=== PATIENT | female | born 1985 | race African-American/Black ===

== ENCOUNTER 2016-07-01 09:05 | Emergency (ER) | payer SELFPAY ==
[~2016-07-01] VITALS: Ht 158.8 cm; Wt 74.8 kg
[~2016-07-01 09:05] MED LIST: ALBUTEROL SULF8.5 GM INH; AZITHROMYCIN250 MG ORAL; NKM; NORCO 5-325 TA1 EACH ORAL; PROMETHAZINE-D118 ML ORAL; ROBITUSSIN DM5 ML ORAL; ZITHROMAX250 MG ORAL
[2016-07-01 09:11] VITALS: BP 124/74
[2016-07-01] MEDS ORDERED: Ipratropium 0.02% Inh Soln 2.5ml UD ONE (09:33)
[2016-07-01] MEDS ORDERED: Albuterol ud Inhalation ONE (09:33)
--- NOTE | 2016-07-01 09:36 | Emergency Room Report ---
History of Present Illness General Chief Complaint: Upper Respiratory Illness Source: Patient, Medical Record Present Illness HPI Patient with URI sy. Has been wheezing. Had bronchitis last year and feels similar. No prednisone. + productive sputum. No chest pain. Inhaler has helped in the past. No NVD, rashes, headache, dysuria. States not . Allergies: Coded Allergies: No Known Allergies (Unverified , 06/06/12) Patient History Past Medical History: see triage record Social History: Reports: smoking Social History Narrative unemployed Last Menstrual Period: 06/16/16 Now: No : 0 Para: 0 Review of Systems All Other Systems: negative except mentioned in HPI Physical Exam Vital Signs Date Time Temp Pulse Resp B/P Pulse Ox O2 Delivery O2 Flow Rate FiO2 07/01/16 09:11 98.4 108 21 124/74 99 Room Air Sp02 EP Interpretation: reviewed, normal General Appearance: well appearing, no apparent distress Head: normocephalic, atraumatic ENT: hearing grossly normal, normal voice Neck: full range of motion, supple Respiratory: chest non-tender, wheezing, expiration Cardiovascular #1: regular rate, rhythm, no edema Gastrointestinal: normal bowel sounds, non tender, soft Musculoskeletal: digits/nails normal, gait/station normal, normal range of motion, no calf tenderness Neurologic: alert, normal gait, grossly normal Psychiatric: mood/affect normal Skin: no rash Medical Decision Making Diagnostic Impression: Primary Impression: Asthmatic bronchitis Qualified Codes: J45.21 - Mild intermittent asthma with (acute) exacerbation ER Course Patient with URI and wheezing. DDx: asthmatic bronchitis, pneumonia, bronchitis , viral syndrome. No resp distress. Will treat with breathing treatments and decadron. No blood work or xrays indicated at this time. Purulent sputum with asthma, antibiotics indicated. Improved with breathing treatments. Patient stable for outpatient observation and treatment. Last Vital Signs Date Time Temp Pulse Resp B/P Pulse Ox O2 Delivery O2 Flow Rate FiO2 07/01/16 11:05 98.4 108 18 124/74 100 Room Air Status: improved Disposition: HOME, SELF-CARE Condition: Improved Scripts Codeine/Promethazine Hcl* (PROMETHAZINE-CODEINE SYRUP*) 118 Ml Syrup 5 ML ORAL Q6H Y for For Cough, #60 ML 0 Refills Prov: Dieudonne Sahu M.D. 07/01/16 Albuterol Sulfate* (ALBUTEROL SULFATE MDI*) 8.5 Gm Hfa.aer.ad 2 PUFF INH Q6H, #1 EA 0 Refills Prov: Dieudonne Sahu M.D. 07/01/16 Azithromycin* (ZITHROMAX*) 250 Mg Tablet 250 MG ORAL DAILY, #4 TAB Prov: Dieudonne Sahu M.D. 07/01/16 Referrals: NOT CHOSEN DELONTE/,REFERRING (PCP) Dieudonne Sahu M.D. Jul 01, 2016 09:36
[2016-07-01] MEDS ORDERED: Azithromycin 250mg tab ORAL ONE (09:45)
[2016-07-01] MEDS ORDERED: Ipratropium 0.02% Inh Soln 2.5ml UD HHN ONE (09:45)
[2016-07-01] MEDS ORDERED: Albuterol ud Inhalation HHN ONE (09:45)
[2016-07-01] MEDS ORDERED: ZITHROMAX250 MG ORAL (10:57)
[2016-07-01] MEDS ORDERED: ALBUTEROL SULF8.5 GM INH (10:57)
[2016-07-01] MEDS ORDERED: PROMETHAZINE-C118 M1 ORAL (10:57)
[2016-07-01 11:05] VITALS: BP 124/74
== END 2016-07-01 11:05 | disposition home or self-care (01) ==
LOC: EMR 09:33
DX: J45.21 Mild intermittent asthma with (acute) exacerbation (principal); F17.200 Nicotine dependence, unspecified, uncomplicated
CPT/HCPCS: 94640; 94664; 99284; J8540

== ENCOUNTER 2016-10-09 14:38 | Emergency (ER) | payer SELFPAY ==
[~2016-10-09] VITALS: Ht 157.5 cm; Wt 83.9 kg
[~2016-10-09 14:38] MED LIST changes: +PROMETHAZINE-C118 M1 ORAL
[2016-10-09] MEDS ORDERED: Metoclopramide 10mg/2ml Inj IVP ONE (15:00)
[2016-10-09 15:23] LABS: APPEARANCE,URINE SLIGHTLY CLOUDY; KETONES,URINE NEGATIVE (NEGATIVE); LEUKOCYTE ESTERASE ,URINE 1+ (NEGATIVE); NITRITE,URINE NEGATIVE (NEGATIVE); PH,URINE 8 (4.5-8.0); PROTEIN,URINE NEGATIVE (NEGATIVE); UROBILINOGEN,URINE NORMAL MG/DL (0.0-1.0)
[2016-10-09 15:29] LABS: AMORPHOUS SEDIMENT,UR FEW /LPF; RBC,URINE 0-2 /HPF (0 - 2); SQUAMOUS EPITHELIAL CELL,UR MANY /LPF (NONE/OCC)
[2016-10-09 15:32] VITALS: BP 107/68
[2016-10-09 15:40] LABS: MEAN CORPUSCULAR HEMOGLOBIN 24.3 PG (27.0-31.0); MEAN CORPUSCULAR HGB CONC 30.6 G/DL (32.0-36.0); MEAN CORPUSCULAR VOLUME 79 FL (80-99); MEAN PLATELET VOLUME 7.8 FL (6.5-10.1); PLATELET COUNT 179 K/UL (150-450); RED BLOOD COUNT 4.77 M/UL (4.20-5.40); RED CELL DISTRIBUTION WIDTH 13.1 % (11.6-14.8); WHITE BLOOD COUNT 7.7 K/UL (4.8-10.8)
[2016-10-09 15:58] LABS: ALANINE AMINOTRANSFERASE 9 U/L (3-33); ALBUMIN/GLOBULIN RATIO 1.4 (1.0-2.7); ANION GAP 11 (5-15); ASPARTATE AMINO TRANSFERASE 12 U/L (5-40); CALCIUM 9.4 mg/dL (8.6-10.2); CARBON DIOXIDE 25 mEQ/L (20-30); CHLORIDE 100 mEQ/L (98-107); CREATININE 0.7 mg/dL (0.5-0.9); GLOMERULAR FILTRATION RATE > 60 mL/min (>60); HEMOLYSIS 4; LIPASE 13 U/L (< 60); POTASSIUM 4.3 mEQ/L (3.4-4.9); SODIUM 136 mEQ/L (135-145)
--- NOTE | 2016-10-09 15:59 | Emergency Room Report ---
History of Present Illness General Chief Complaint: Vomiting Source: Patient Present Illness HPI 31 YO Female presents to ED c/o acute onset this am of nausea and vomiting. pt. reports vomiting 5 times, denies blood in vomit. pt. denies abdominal pain other than burning epigastric discomfort 5/10 in severity after episodes of vomiting. pt. denies abdominal tenderness, fevers, chills, constipation or diarrhea. pt. denies ill contacts or recent travel. pt. reports she has not had a period since apr. pt. reports mild dizziness after vomiting. denies vertigo, denies recent head trauma. denies marijuana use. Denies low back pain, hematuria , dysuria, or frequency. Denies CP, Palpitations, LOC, AMS, dizziness, Changes in Vision, Sensation, paresthesias, or a sudden severe headache. Allergies: Coded Allergies: No Known Allergies (Unverified , 06/06/12) Patient History Past Medical History: see triage record Past Surgical History: none Pertinent Family History: none Last Menstrual Period: Apr, 2016 Now: No Reviewed Nursing Documentation: PMH: Agreed, PSxH: Agreed Nursing Documentation-PMH Past Medical History: No History, Except For Review of Systems All Other Systems: negative except mentioned in HPI Physical Exam Vital Signs Date Time Temp Pulse Resp B/P Pulse Ox O2 Delivery O2 Flow Rate FiO2 10/09/16 14:43 98.1 108 16 107/68 98 Room Air Sp02 EP Interpretation: reviewed, abnormal - tachycardic at 108 bpm and systolic bp is on the lower end. General Appearance: no apparent distress, alert, GCS 15, non-toxic Head: normocephalic, atraumatic Eyes: bilateral eye PERRL, bilateral eye normal inspection ENT: hearing grossly normal, normal pharynx, no angioedema, normal voice Neck: full range of motion, supple/symm/no masses Respiratory: lungs clear, normal breath sounds, speaking full sentences Cardiovascular #1: regular rate, rhythm, no edema Gastrointestinal: normal bowel sounds, non tender, soft, no guarding, no rebound, other - Negative Magnolia signs, Negative MacBurney's sign, No Peritoneal signs. Rectal: deferred Genitourinary: normal inspection, no CVA tenderness Musculoskeletal: back normal, gait/station normal, normal range of motion, non- tender Neurologic: alert, oriented x3, responsive, motor strength/tone normal, sensory intact, speech normal Psychiatric: judgement/insight normal, memory normal, mood/affect normal Skin: normal color, no rash, warm/dry, well hydrated Medical Decision Making PA Attestation Dr. Sahu is my supervising Physician whom patient management has been discussed with. Diagnostic Impression: Primary Impression: Gastritis Qualified Codes: K29.00 - Acute gastritis without bleeding ER Course 31 YO Female presents to ED c/o acute onset this am of nausea and vomiting. pt. reports vomiting 5 times, denies blood in vomit. pt. denies abdominal pain other than burning epigastric discomfort 5/10 in severity after episodes of vomiting. pt. denies abdominal tenderness, fevers, chills, constipation or diarrhea. pt. denies ill contacts or recent travel. pt. reports she has not had a period since apr. pt. reports mild dizziness after vomiting. denies vertigo, denies recent head trauma. denies marijuana use. Denies CP, Palpitations, LOC, AMS, dizziness, Changes in Vision, Sensation, paresthesias, or a sudden severe headache. Ddx considered but are not limited to Diverticulitis, acute appendicitis, diarrhea, UC, PUD, GE, pancreatitis, gallstone, Vital signs: Tachycardic at 108 bpm and systolic bp is on the lower end., pt. is afebrile H&PE are most consistent with gastritis.- will treat prophylactically for volume loss due to tachycardia, and low systolic BP ORDERS: CBC- Unremarkable CMP: electrolytes normal, unremarkable lipase: WNL UA: WNL Urine hcg: negative ED INTERVENTIONS: -- 1000NS - zantac 150mg - Reglan 10mg . Pt. able to tolerate oral fluids. pt. states she feels much better, and is not as nauseated. I do not suspect an emergent condition at this time. with current presentation, and laboratory results, pt. is stable for close outpatient follow up. D/w pt. to return to ED with worsening or new symptoms. DISCHARGE: At this time pt. is stable for d/c to home. Will provide printed patient care instructions, and any necessary prescriptions. Care plan and follow up instructions have been discussed with the patient prior to discharge. Labs Test 10/09/16 14:51 10/09/16 15:14 Urine Color Pale yellow Urine Appearance Slightly cloudy Urine pH 8 (4.5-8.0) Urine Specific Rudyard 1.015 (1.005-1.035) Urine Protein Negative (NEGATIVE) Urine Glucose (UA) Negative (NEGATIVE) Urine Ketones Negative (NEGATIVE) Urine Occult Blood Negative (NEGATIVE) Urine Nitrite Negative (NEGATIVE) Urine Bilirubin Negative (NEGATIVE) Urine Urobilinogen Normal MG/DL (0.0-1.0) Urine Leukocyte Esterase 1+ (NEGATIVE) Urine RBC 0-2 /HPF (0 - 2) Urine WBC 2-4 /HPF (0 - 2) Urine Squamous Epithelial Cells Many /LPF (NONE/OCC) Urine Amorphous Sediment Few /LPF (NONE) Urine Bacteria None /HPF (NONE) Urine HCG, Qualitative Negative White Blood Count 7.7 K/UL (4.8-10.8) Red Blood Count 4.77 M/UL (4.20-5.40) Hemoglobin 11.6 G/DL (12.0-16.0) Hematocrit 37.9 % (37.0-47.0) Mean Corpuscular Volume 79 FL (80-99) Mean Corpuscular Hemoglobin 24.3 PG (27.0-31.0) Mean Corpuscular Hemoglobin Concent 30.6 G/DL (32.0-36.0) Red Cell Distribution Width 13.1 % (11.6-14.8) Platelet Count 179 K/UL (150-450) Mean Platelet Volume 7.8 FL (6.5-10.1) Neutrophils (%) (Auto) % (45.0-75.0) Lymphocytes (%) (Auto) % (20.0-45.0) Monocytes (%) (Auto) % (1.0-10.0) Eosinophils (%) (Auto) % (0.0-3.0) Basophils (%) (Auto) % (0.0-2.0) Sodium Level 136 mEQ/L (135-145) Potassium Level 4.3 mEQ/L (3.4-4.9) Chloride Level 100 mEQ/L (98-107) Carbon Dioxide Level 25 mEQ/L (20-30) Anion Gap 11 (5-15) Blood Urea Nitrogen 14 mg/dL (7-23) Creatinine 0.7 mg/dL (0.5-0.9) Estimat Glomerular Filtration Rate > 60 mL/min (>60) Glucose Level 96 mg/dL (74-106) Calcium Level 9.4 mg/dL (8.6-10.2) Total Bilirubin 0.6 mg/dL (0.0-1.2) Aspartate Amino Transf (AST/SGOT) 12 U/L (5-40) Alanine Aminotransferase (ALT/SGPT) 9 U/L (3-33) Alkaline Phosphatase 75 U/L (35-104) Total Protein 7.0 g/dL (6.6-8.7) Albumin 4.1 g/dL (3.5-5.2) Globulin 2.9 g/dL Albumin/Globulin Ratio 1.4 (1.0-2.7) Lipase 13 U/L (< 60) Last Vital Signs Date Time Temp Pulse Resp B/P Pulse Ox O2 Delivery O2 Flow Rate FiO2 10/09/16 15:32 98.1 16 107/68 98 Room Air 10/09/16 14:43 108 Disposition: HOME, SELF-CARE Condition: Stable Scripts Ranitidine Hcl* (ZANTAC*) 150 Mg Tablet 150 MG ORAL TWICE A DAY for 7 Days, #14 TAB Prov: Harriett Crowe 10/09/16 Ondansetron Odt* (ZOFRAN ODT*) 4 Mg Tab.rapdis 4 MG ORAL Q6H Y for Nausea & Vomiting, #20 TAB Prov: Harriett Crowe 10/09/16 Patient Instructions: Nausea and Vomiting, Adult Additional Instructions: Take medications as directed. Follow up with a Primary Care Provider in 3-5 days, even if your symptoms have resolved. --Please review list of primary care clinics, if you do not already have a primary care provider Return sooner to ED if new symptoms occur, or current symptoms become worse. - Please note that this Emergency Department Report was dictated using Simplilearndata collector technology software, occasionally this can lead to erroneous entry secondary to interpretation by the dictation equipment. Harriett Crowe Oct 09, 2016 15:59
[2016-10-09] MEDS ORDERED: ZOFRAN ODT4 MG ORAL (16:10)
[2016-10-09] MEDS ORDERED: ZANTAC150 MG ORAL (16:10)
[2016-10-09 16:29] VITALS: BP 107/68
[2016-10-09 17:13] LABS: BAND NEUTROPHILS % (MANUAL) 4 % (0-8); EOSINOPHILS % (MANUAL) 1 % (0-3); LYMPHOCYTES % (MANUAL) 4 % (20-45); NEUTROPHILS % (MANUAL) 84 % (45-75); TOTAL CELLS COUNTED 100
[2016-10-09 17:14] LABS: BASOPHILS % (MANUAL) 0 % (0-2); MICROCYTES 1+; OVALOCYTES 1+; PLATELET ESTIMATE ADEQUATE; PLATELET MORPHOLOGY NORMAL
== END 2016-10-09 16:29 | disposition home or self-care (01) ==
LOC: EMR 15:11
DX: K29.70 Gastritis, unspecified, without bleeding (principal)
CPT/HCPCS: 36415; 80053; 81003; 81025; 83690; 85007; 85025; 96374; 96375; 99284; J2765

== ENCOUNTER 2018-08-01 14:50 | Emergency (ER) | payer SELFPAY ==
[~2018-08-01] VITALS: Ht 157.5 cm; Wt 83.9 kg
[~2018-08-01 14:50] MED LIST changes: +ZANTAC150 MG ORAL; +ZOFRAN ODT4 MG ORAL
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
[2018-08-01 15:04] VITALS: BP 138/83
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
[2018-08-01] MEDS ORDERED: LIDODERM700 M1 TOPIC (15:57)
[2018-08-01] MEDS ORDERED: ROBAXIN-750750 MG PO (15:57)
[2018-08-01] MEDS ORDERED: TYLENOL EXTRA500 MG ORAL (15:57)
[2018-08-01 16:05] VITALS: BP 138/83
--- NOTE | 2018-08-01 16:05 | NUR ---
ER DISCHARGE NOTE: Patient is cleared to be discharged per ERMD, pt is aox4, on room air, with stable vital signs. pt was given dc and prescription instructions, pt was able to verbalize understanding, pt id band removed without complications. pt is able to ambulate with steady gait. pt took all belongings.
== END 2018-08-01 16:05 | disposition home or self-care (01) ==
LOC: EMR 15:07
DX: S29.012A Strain of muscle and tendon of back wall of thorax, initial encounter (principal); M62.830 Muscle spasm of back; V43.62XA Car passenger injured in collision with other type car in traffic accident, initial encounter; Y93.9 Activity, unspecified; Y92.410 Unspecified street and highway as the place of occurrence of the external cause; M25.511 Pain in right shoulder
CPT/HCPCS: 99282

== ENCOUNTER 2018-10-02 18:36 | Emergency (ER) | payer SELFPAY ==
[~2018-10-02] VITALS: Ht 157.5 cm; Wt 88.5 kg
[~2018-10-02 18:36] MED LIST changes: +LIDODERM700 M1 TOPIC; +ROBAXIN-750750 MG PO; +TYLENOL EXTRA500 MG ORAL
[2018-10-02 18:41] VITALS: BP 123/82
--- NOTE | 2018-10-02 18:50 | NUR ---
ED Nurse Note: Patient walked into ED c/o coughing since 09/29/18 patient is alert awake x4 ambulatory
--- NOTE | 2018-10-02 19:09 | NUR ---
HAND-OFF: Report given to Jarred STEWARD. patient is stable in bed
[2018-10-02] MEDS ORDERED: ALBUTEROL SULF8.5 GM INH (19:57)
[2018-10-02] MEDS ORDERED: PROMETHAZINE-C118 M1 ORAL (19:57)
[2018-10-02] MEDS ORDERED: TESSALON PERLE100 MG ORAL (19:57)
--- NOTE | 2018-10-02 19:57 | Emergency Room Report ---
History of Present Illness General Chief Complaint: Upper Respiratory Illness Source: Patient Present Illness HPI 33-year-old female presents to the emergency department complaining of 7 out of 10 severity persistent dry cough with wheeze and dry throat sensation since Tuesday. Patient denies fevers or chills she reports history of bronchitis especially with changes of the weather. Patient denies neck pain, sore throat, headache, photophobia, recent travel or ill contacts. Patient significant past medical history otherwise. Denies Smoking hx. Allergies: Coded Allergies: No Known Allergies (Unverified , 06/06/12) Patient History Past Medical History: see triage record Past Surgical History: none Pertinent Family History: none Last Menstrual Period: 07/2018 Now: No Reviewed Nursing Documentation: PMH: Agreed; PSxH: Agreed Nursing Documentation-PMH Past Medical History: No History, Except For Review of Systems All Other Systems: negative except mentioned in HPI Physical Exam Vital Signs Date Time Temp Pulse Resp B/P (MAP) Pulse Ox O2 Delivery O2 Flow Rate FiO2 10/02/18 18:41 98.2 87 21 123/82 96 Room Air Sp02 EP Interpretation: reviewed, normal General Appearance: no apparent distress, alert, GCS 15, non-toxic Head: normocephalic, atraumatic Eyes: bilateral eye normal inspection, bilateral eye PERRL ENT: hearing grossly normal, normal pharynx, normal voice, TMs + canals normal , uvula midline, moist mucus membranes Neck: full range of motion, no meningismus Respiratory: chest non-tender, lungs clear, normal breath sounds, no respiratory distress, no accessory muscle use, speaking full sentences, wheezing Cardiovascular #1: regular rate, rhythm Musculoskeletal: back normal, gait/station normal, normal range of motion, non- tender Neurologic: alert, oriented x3, responsive, motor strength/tone normal, sensory intact, speech normal, grossly normal Psychiatric: judgement/insight normal Lymphatic: no adenopathy Medical Decision Making PA Attestation Dr. Sahu Is my supervising Physician whom patient management has been discussed with. Diagnostic Impression: Primary Impression: Bronchitis ER Course 33-year-old female presents to the emergency department complaining of 7 out of 10 severity persistent dry cough with wheeze and dry throat sensation since Tuesday. Patient denies fevers or chills she reports history of bronchitis especially with changes of the weather. Patient denies neck pain, sore throat, headache, photophobia, recent travel or ill contacts. Patient significant past medical history otherwise. Denies Smoking hx. Ddx considered but are not limited to URI, pneumonia, PE, strep pharyngitis, meningitis. Vital signs: Pt.is afebrile VS are WNL H&PE are most consistent with bronchitis ORDERS: none required at this time, the diagnosis is clinical ED INTERVENTIONS: None required at this time. DISCHARGE: At this time pt. is stable for d/c to home. Will provide printed patient care instructions, and any necessary prescriptions. Care plan and follow up instructions have been discussed with the patient prior to discharge. Last Vital Signs Date Time Temp Pulse Resp B/P (MAP) Pulse Ox O2 Delivery O2 Flow Rate FiO2 10/02/18 19:02 87 21 Room Air 10/02/18 18:41 98.2 123/82 (96) 96 Disposition: HOME, SELF-CARE Condition: Stable Departure Forms: Return to Work Return to Work Date: Oct 04, 2018 Work Restrictions: None Return to Full Activity: Oct 04, 2018 Patient Instructions: Acute Bronchitis, [id number] Additional Instructions: Take medications as directed. Follow up with a Primary Care Provider in 3-5 days, even if your symptoms have resolved. --Please review list of primary care clinics, if you do not already have a primary care provider Return sooner to ED if new symptoms occur, or current symptoms become worse. Do not drink alcohol, drive, or operate heavy machinery while taking Cough Syrup as this may cause drowsiness. - Please note that this Emergency Department Report was dictated using Nexamplast pattern grader technology software, occasionally this can lead to erroneous entry secondary to interpretation by the dictation equipment. Harriett Crowe Oct 02, 2018 19:57
[2018-10-02 20:11] VITALS: BP 132/80
[2018-10-02 20:12] VITALS: BP 132/80
== END 2018-10-02 22:21 | disposition home or self-care (01) ==
LOC: EMR 19:20
DX: J20.9 Acute bronchitis, unspecified (principal)
CPT/HCPCS: 99281